=== PATIENT | female | born 1960 | race Caucasian/White ===

== ENCOUNTER 2018-03-09 14:10 | Emergency (ER) | payer OTHER ==
[~2018-03-09] VITALS: Ht 157.5 cm; Wt 57.2 kg
[~2018-03-09 14:10] MED LIST: CELEBREX100 MG; KLONOPIN0.25 MG/TA; NEURONTIN800 MG; PREMARIN2.5 MG; PROTONIX40 M1; RESTORIL15 MG; TORADOL10 MG; WELLBUTRIN100 MG; ZANTAC150 M3
== END 2018-03-09 20:17 | disposition home or self-care (01) ==
LOC: ER 14:10
DX: K59.09 Other constipation (principal); R10.31 Right lower quadrant pain

== ENCOUNTER 2018-03-13 08:22 | Outpatient (CLI) | payer OTHER | END 2018-03-13 11:26 | disposition home or self-care (01) | LOC: TOM 08:22 | DX: R10.9 Unspecified abdominal pain (principal) ==

== ENCOUNTER 2021-02-15 10:21 | Outpatient (CLI) | payer OTHER | END 2021-02-15 10:40 | disposition home or self-care (01) | LOC: TOM 10:21 | DX: E21.3 Hyperparathyroidism, unspecified (principal); R51.9 Headache, unspecified ==

== ENCOUNTER → 2021-02-15 12:03 | Outpatient (CLI) | payer OTHER | END | disposition home or self-care (01) | LOC: LAB 12:03 | PROVIDERS: ATTEND Radiology Diagnostic Radiology | DX: R51.9 Headache, unspecified (principal) ==

== ENCOUNTER 2022-05-14 11:43 | Emergency (ER) | payer OTHER ==
[~2022-05-14] VITALS: Ht 157.5 cm; Wt 60.8 kg
[2022-05-14] MEDS ORDERED: MINIVELLE1 EAC1 TD (12:10)
[2022-05-14] MEDS ORDERED: RELAFEN DS1000 MG PO (12:11)
== END 2022-05-14 22:44 | disposition home or self-care (01) ==
LOC: ER 11:43
DX: R10.2 Pelvic and perineal pain (principal); E78.00 Pure hypercholesterolemia, unspecified

== ENCOUNTER 2022-06-25 21:53 | Emergency (ER) | payer OTHER ==
[~2022-06-25] VITALS: Ht 157.5 cm; Wt 60.3 kg
[~2022-06-25 21:53] MED LIST changes: +MINIVELLE1 EAC1 TD; +RELAFEN DS1000 MG PO
[2022-06-25] MEDS ORDERED: MACRODANTIN100 MG PO (22:07)
[2022-06-25] MEDS ORDERED: CLONAZEPAM0.5 MG PO (22:07)
[2022-06-25] MEDS ORDERED: IPRAT-ALBUT 0.5-3 ML IH (22:27)
[2022-06-25] MEDS ORDERED: BENZONATATE200 M1 PO (22:27)
[2022-06-25] MEDS ORDERED: BUDEO.25 IH (23:03)
== END 2022-06-26 00:01 | disposition home or self-care (01) ==
LOC: ER 21:53
DX: U07.1 COVID-19 (principal)

== ENCOUNTER → 2022-07-11 | Outpatient (CLI) | payer OTHER ==
[~2022-07-11] MED LIST changes: +BENZONATATE200 M1 PO; +BUDEO.25 IH; +CLONAZEPAM0.5 MG PO; +IPRAT-ALBUT 0.5-3 ML IH; +MACRODANTIN100 MG PO
== END | disposition home or self-care (01) ==
LOC: RAD 12:19
PROVIDERS: ATTEND Internal Medicine Pulmonary Disease
DX: J44.1 Chronic obstructive pulmonary disease with (acute) exacerbation (principal); J44.9 Chronic obstructive pulmonary disease, unspecified

== ENCOUNTER 2022-10-29 11:27 | Emergency (ER) | payer OTHER ==
[~2022-10-29] VITALS: Ht 157.5 cm; Wt 59.4 kg
[2022-10-29] MEDS ORDERED: NAPROXEN500 MG PO (15:04)
[2022-10-29] MEDS ORDERED: AMOX1TAB5 PO (15:04)
== END 2022-10-29 16:06 | disposition home or self-care (01) ==
LOC: ER 11:27
DX: H66.90 Otitis media, unspecified, unspecified ear (principal)

== ENCOUNTER 2022-11-27 13:29 | Outpatient (CLI) | payer OTHER ==
[~2022-11-27 13:29] MED LIST changes: +AMOX1TAB5 PO; +NAPROXEN500 MG PO
== END 2022-11-27 13:35 | disposition home or self-care (01) ==
LOC: TOM 13:29
PROVIDERS: ATTEND Internal Medicine Critical Care Medicine
DX: J84.9 Interstitial pulmonary disease, unspecified (principal)

== ENCOUNTER 2023-03-29 15:11 | Emergency (ER) | payer OTHER ==
[~2023-03-29] VITALS: Ht 160 cm; Wt 63.5 kg
[2023-03-29] MEDS ORDERED: PROAIR RESPICL90 MCG IH (18:10)
[2023-03-29] MEDS ORDERED: TUSNEL LIQUID178 ML PO (18:10)
[2023-03-29] MEDS ORDERED: DOLOGEN CAPLET1 EACH PO (18:10)
[2023-03-29] MEDS ORDERED: PAXLOVID 300-11 EACH PO (18:10)
== END 2023-03-29 18:15 | disposition home or self-care (01) ==
LOC: ER 15:11
DX: U07.1 COVID-19 (principal); R53.81 Other malaise

== ENCOUNTER 2023-04-05 14:01 | Outpatient (CLI) | payer OTHER ==
[~2023-04-05 14:01] MED LIST changes: +DOLOGEN CAPLET1 EACH PO; +PAXLOVID 300-11 EACH PO; +PROAIR RESPICL90 MCG IH; +TUSNEL LIQUID178 ML PO
== END 2023-04-05 14:22 | disposition home or self-care (01) ==
LOC: TOM 14:01
PROVIDERS: ATTEND General Practice
DX: G43.909 Migraine, unspecified, not intractable, without status migrainosus (principal); M54.10 Radiculopathy, site unspecified

== ENCOUNTER 2023-12-21 18:57 | Emergency (ER) | payer OTHER ==
[~2023-12-21] VITALS: Ht 157.5 cm; Wt 54.9 kg
[2023-12-21] MEDS ORDERED: BUPROPION HCL100 MG PO (19:07)
[2023-12-21] MEDS ORDERED: ESTRADIOL1 MG PO (19:08)
[2023-12-21] MEDS ORDERED: ATORVASTATIN CA10 MG PO (19:08)
[2023-12-21] MEDS ORDERED: NEOMYCIN/POLYMYXIN B/HYDROCORT 20 DR/ML BOTTLE OT STA (20:20)
== END 2023-12-21 21:08 | disposition home or self-care (01) ==
LOC: ER 18:57
DX: H60.90 Unspecified otitis externa, unspecified ear (principal); Z88.6 Allergy status to analgesic agent; Z88.5 Allergy status to narcotic agent

== ENCOUNTER 2024-04-28 05:15 | Emergency (ER) | payer OTHER ==
[~2024-04-28] VITALS: Ht 157.5 cm; Wt 54.4 kg
[~2024-04-28 05:15] MED LIST changes: +ATORVASTATIN CA10 MG PO; +BUPROPION HCL100 MG PO; +ESTRADIOL1 MG PO
[2024-04-28] MEDS ORDERED: FAMOTIDINE/PF 20 MG/2 ML VIAL IV PUSH STA (05:43)
[2024-04-28] MEDS ORDERED: PROMETHAZINE HCL 50 MG/ML AMPUL IM STA (05:43)
[2024-04-28] MEDS ORDERED: MEPERIDINE HCL/PF 25 MG/ML VIAL IM STA (05:43)
[2024-04-28] MEDS ORDERED: 0.9 % SODIUM CHLORIDE 1,000 ML IV ONE (05:45)
[2024-04-28] MEDS ORDERED: PROMETHAZINE HCL 50 MG/ML AMPUL IM ONE (05:47)
[2024-04-28] MEDS ORDERED: FAMOtidine 200mg/20ml VIAL ONE (05:48)
[2024-04-28 06:45] LABS: HEMATOCRIT 41.9 % (36.0-45.00); HEMOGLOBIN 14.3 g/dL (12.0-15.00); MEAN CORPUSCULAR HEMOGLOBIN 30.4 pg (27.00-32.0); MEAN CORPUSCULAR HGB CONC 34.1 g/dl (32.0-36.0); PLATELET COUNT 219 K/uL (150-450); RED BLOOD COUNT 4.71 M/uL (4.00-6.00)
[2024-04-28 07:02] LABS: INR 0.94; PARTIAL THROMBOPLASTIN TIME 26.8 SECONDS (22.0-34.0); PROTHROMBIN TIME 9.9 SECONDS (9.0-11.5)
[2024-04-28 07:09] LABS: ALBUMIN 3.8 gm/dL (3.4-5.0); BILIRUBIN TOTAL 0.79 mg/dL (0.3-1.2); BILIRUBIN,CONJUGATED 0.4 mg/dL (0.0-0.2); BILIRUBIN,UNCONJUGATED 0.39 mg/dL (0.0-0.6); CALCIUM 9.2 mg/dL (8.5-10.1); CREATININE SERUM 0.8 mg/dL (0.55-1.02); GFR 72.21; GLOBULINA 3.4 G/DL (2.4-3.5); POTASSIUM 3.85 mEq/L (3.5-5.1); TOTAL PROTEIN 7.2 gm/dL (6.4-8.2)
[2024-04-28 07:56] LABS: PH,URINE 6.5 (5.0-8.0); URINE APPEARANCE Clear; URINE BILIRRUBIN Negative (NEGATIVE); URINE BLOOD Negative; URINE COLOR Yellow; URINE GLUCOSE Negative (NEGATIVE); URINE LEUKOCYTE Negative; URINE NITRATE Negative; URINE PROTEIN Negative (NEGATIVE); URINE UROBILINOGEN 0.2 E.U./dl
[2024-04-28 07:57] LABS: URINE EPITHELIAL CELLS 39.5 uL (0.0-38.8); URINE RBC 19.2 uL (0.0-20.8); URINE WBC 6.8 uL (0.0-23.2)
[2024-04-28] MEDS ORDERED: PEPCID AC20 MG PO (10:00)
[2024-04-28] MEDS ORDERED: ONDANSETRON ODT8 MG PO (10:00)
[2024-04-28] MEDS ORDERED: LEVSIN/SL0.125 MG SL (10:00)
[2024-04-28] MEDS ORDERED: METHYLPREDNISOLONE SOD SUCC 125 MG VIAL IV ONE (10:00)
[2024-04-28] MEDS ORDERED: HYOSCYAMINE SULFATE 0.125 MG TAB.SUBL SL ONE (10:00)
[2024-04-28] MEDS ORDERED: HYOSCYAMINE SULFATE 0.125 MG TAB.SUBL ONE (10:05)
[2024-04-28] MEDS ORDERED: METHYLPREDNISOLONE SOD SUCC 125 MG VIAL ONE (10:06)
== END 2024-04-28 10:49 | disposition home or self-care (01) ==
LOC: ER 05:17
PROVIDERS: General Practice
DX: R10.13 Epigastric pain (principal); Z88.6 Allergy status to analgesic agent; Z88.8 Allergy status to other drugs, medicaments and biological substances; R11.10 Vomiting, unspecified; K80.20 Calculus of gallbladder without cholecystitis without obstruction
CPT/HCPCS: 36415; 76700; 93005; 96365; 96366; 99284; J2250; J3490; J7030

== ENCOUNTER → 2024-04-29 | Emergency (ER) | payer OTHER ==
[~2024-04-29] VITALS: Ht 157.5 cm; Wt 56.7 kg
[~2024-04-29] MED LIST changes: +LEVSIN/SL0.125 MG SL; +ONDANSETRON ODT8 MG PO; +PEPCID AC20 MG PO
== END | disposition left against medical advice (07) ==
LOC: ER 11:22
DX: Z53.21 Procedure and treatment not carried out due to patient leaving prior to being seen by health care provider (principal); Z88.5 Allergy status to narcotic agent; Z88.6 Allergy status to analgesic agent

== ENCOUNTER 2024-05-19 06:51 | Day surgery (SDC) | payer OTHER | END 2024-05-19 17:00 | disposition home or self-care (01) | LOC: CIR.AMB 06:51 | PROVIDERS: ATTEND Surgery | DX: K57.30 Diverticulosis of large intestine without perforation or abscess without bleeding (principal); K64.9 Unspecified hemorrhoids; Z88.6 Allergy status to analgesic agent; Z88.1 Allergy status to other antibiotic agents ==

== ENCOUNTER 2024-06-02 10:35 | Inpatient (IN) | payer OTHER ==
[~2024-06-02] VITALS: Ht 162.6 cm; Wt 56.7 kg
--- NOTE | 2024-06-02 11:10 | NUR ---
PACIENTE ALERTA Y ORIENTADA X 3. REFIERE DOLOR EN AREA PELVICA LADO DERECHO DEDSDE EL VANE DE CORY QUE SE IRRADIA EN ESPLADA BAJA. ESTA REFIERE TENER JEMAL EN VESICULA. INDICA PROBLEMAS PARA ORINAR.
[2024-06-02] MEDS ORDERED: ZIAC PO (11:14)
[2024-06-02] MEDS ORDERED: MEPERIDINE HCL/PF 25 MG/ML VIAL IV ONE (11:45)
[2024-06-02] MEDS ORDERED: 0.9 % SODIUM CHLORIDE 1,000 ML IV SCH ×2 (11:45→23:00)
[2024-06-02 12:11] LABS: HEMATOCRIT 40.8 % (36.0-45.00); HEMOGLOBIN 13.8 g/dL (12.0-15.00); MEAN CELL VOLUME 88.8 fL (80.00-100.00); MEAN CORPUSCULAR HGB CONC 33.8 g/dl (32.0-36.0); PLATELET COUNT 234 K/uL (150-450); RED BLOOD COUNT 4.59 M/uL (4.00-6.00); RED CELL DISTRIBUTION WIDTH 12.6 % (11.5-14.5)
--- NOTE | 2024-06-02 12:12 | NUR ---
PTE ALERTA Y ORIENTADA X3. SE EDUCA A PTE SOBTE [place] MEDICO, LA MISMA REFIERE ENTENDER. SE ADMINISTRAN MEDICAMENTOS DAVID ORDEN MEDICA BAJO MEDIDAS ASEPTICAS Y SE ADMINISTRAN MEDICAMENTOS DAVID ORDEN MEIDCA. SE NOTIFICA SONO PENDIENTE Y SE HACE ENTREGA DE ENVASE PARA U.A PENDIENTE
[2024-06-02 12:47] LABS: AMYLASE 50 U/L (25-115); LIPASE 18 U/L (13-75)
[2024-06-02 12:49] LABS: CALCIUM 8.7 mg/dL (8.5-10.1); CREATININE SERUM 0.79 mg/dL (0.55-1.02); GFR 73.27; POTASSIUM 3.6 mEq/L (3.5-5.1)
[2024-06-02 12:56] LABS: INR 1.01; PARTIAL THROMBOPLASTIN TIME 29.3 SECONDS (22.0-34.0)
[2024-06-02 14:15] LABS: PH,URINE 7.5 (5.0-8.0); URINE APPEARANCE Clear; URINE BILIRRUBIN Negative (NEGATIVE); URINE BLOOD Negative; URINE COLOR Yellow; URINE GLUCOSE Negative (NEGATIVE); URINE KETONE Negative (NEGATIVE); URINE LEUKOCYTE Negative; URINE NITRATE Negative; URINE PROTEIN Negative (NEGATIVE); URINE UROBILINOGEN 0.2 E.U./dl
[2024-06-02 14:18] LABS: URINE BACTERIA 52.9 uL (0.0-1933); URINE EPITHELIAL CELLS 4.4 uL (0.0-38.8); URINE RBC 4.1 uL (0.0-20.8)
[2024-06-02] MEDS ORDERED: FAMOTIDINE/PF 20 MG/2 ML VIAL ONE ×2 (15:40→23:26)
[2024-06-02] MEDS ORDERED: FAMOTIDINE/PF 20 MG in 0.9 % SODIUM CHLORIDE 8 ML IV PUSH STA ×2 (16:21→23:23)
[2024-06-02] MEDS ORDERED: ONDANSETRON HCL 2 MG/ML VIAL ONE (16:23)
[2024-06-02] MEDS ORDERED: ONDANSETRON HCL 2 MG/ML VIAL IV ONE (16:30)
[2024-06-02] MEDS ORDERED: MEPERIDINE HCL/PF 25 MG/ML VIAL IM ONE (16:30)
[2024-06-02] MEDS ORDERED: MEPERIDINE HCL/PF 25 MG/ML VIAL IM PRN (23:00)
[2024-06-02] MEDS ORDERED: ACETAMINOPHEN 500 MG GEL..CAP PO PRN (23:00)
[2024-06-02] MEDS ORDERED: ONDANSETRON HCL 4 MG in 0.9 % SODIUM CHLORIDE 50 ML IV PRN (23:00)
[2024-06-02] MEDS ORDERED: ACETAMINOPHEN 500 MG GEL..CAP PO ONE (23:25)
[2024-06-02] MEDS ORDERED: PIPERACILLIN/TAZOBACTAM SODIUM 3.375 GM VIAL IV ONE (23:59)
[2024-06-03] MEDS ORDERED: PIPERACILLIN/TAZOBACTAM SODIUM 3.375 GM in DEXTROSE 5 % IN WATER 100 ML IV SCH
[2024-06-03 02:01] LABS: PH,URINE 7.5 (5.0-8.0); URINE APPEARANCE Clear; URINE BILIRRUBIN Negative (NEGATIVE); URINE BLOOD Negative; URINE COLOR Yellow; URINE GLUCOSE Negative (NEGATIVE); URINE KETONE 15 (NEGATIVE); URINE LEUKOCYTE Negative; URINE NITRATE Negative; URINE PROTEIN Negative (NEGATIVE); URINE UROBILINOGEN 0.2 E.U./dl
[2024-06-03 02:04] LABS: URINE BACTERIA 71.8 uL (0.0-1933); URINE EPITHELIAL CELLS 12.1 uL (0.0-38.8); URINE RBC 5.6 uL (0.0-20.8); URINE WBC 8.3 uL (0.0-23.2)
[2024-06-03 02:27] LABS: URINE CAST 0.15 uL (0.0-1.40)
[2024-06-03 05:55] VITALS: BP 139/63; O2SAT 100
[2024-06-03] MEDS ORDERED: FAMOTIDINE/PF 20 MG in 0.9 % SODIUM CHLORIDE 8 ML IV PUSH SCH (09:00)
[2024-06-03] MEDS ORDERED: GABAPENTIN 300 MG CAPSULE PO SCH (09:00)
[2024-06-03 09:32] VITALS: BP 128/61; O2SAT 99
[2024-06-03 13:11] LABS: ALBUMIN 3.4 gm/dL (3.4-5.0); BILIRUBIN TOTAL 0.42 mg/dL (0.3-1.2); CALCIUM 8.4 mg/dL (8.5-10.1); CREATININE SERUM 0.78 mg/dL (0.55-1.02); GFR 74.35; GLOBULINA 3.1 G/DL (2.4-3.5); POTASSIUM 3.85 mEq/L (3.5-5.1); TOTAL PROTEIN 6.5 gm/dL (6.4-8.2)
[2024-06-03 16:00] VITALS: BP 150/69; O2SAT 100
[2024-06-04] VITALS: BP 158/67; O2SAT 97
[2024-06-04] MEDS ORDERED: METRONIDAZOLE/SODIUM CHLORIDE 200 ML IV NR
[2024-06-04] MEDS ORDERED: CEFTRIAXONE SODIUM 2,000 MG in 0.9 % SODIUM CHLORIDE 50 ML IV NR (06:00)
[2024-06-04] MEDS ORDERED: BUPIVACAINE HCL/MPF 0.5% 30ML VIAL ONE (07:20)
[2024-06-04] MEDS ORDERED: DIPHENHYDRAMINE HCL 50 MG/ML VIAL 1ML ONE (08:12)
[2024-06-04] MEDS ORDERED: SUGAMMADEX SODIUM 200 MG/2 ML VIAL IV ONE (08:45)
[2024-06-04] MEDS ORDERED: BUPIVACAINE HCL 30 ML VIAL IJ ONE (08:45)
[2024-06-04] MEDS ORDERED: LIDOCAINE HCL 1%/EPINEPHRINE 20ML VIAL IJ ONE (08:45)
[2024-06-04] MEDS ORDERED: ONDANSETRON HCL 2 MG/ML VIAL IV PRN (09:30)
[2024-06-04] MEDS ORDERED: RINGERS SOLUTION,LACTATED 1,000 ML IV SCH (09:30)
[2024-06-04] MEDS ORDERED: DEXTROSE 50 % IN WATER 0.5 G/ML DISP.SYRIN IV PRN (09:30)
[2024-06-04] MEDS ORDERED: MORPHINE SULFATE 4 MG/ML CARTRIDGE IV PRN (09:30)
[2024-06-04] MEDS ORDERED: MORPHINE SULFATE 4 MG/ML VIAL IV ONE ×2 (09:55→10:25)
[2024-06-04 10:52] LABS: HEMATOCRIT 38.4 % (36.0-45.00); MEAN CELL VOLUME 88.7 fL (80.00-100.00); MEAN CORPUSCULAR HEMOGLOBIN 29.9 pg (27.00-32.0); MEAN CORPUSCULAR HGB CONC 33.7 g/dl (32.0-36.0); PLATELET COUNT 205 K/uL (150-450); RED BLOOD COUNT 4.34 M/uL (4.00-6.00); RED CELL DISTRIBUTION WIDTH 12.9 % (11.5-14.5)
[2024-06-04 11:16] VITALS: BP 128/61; O2SAT 98
[2024-06-04 11:27] LABS: ALBUMIN 3.2 gm/dL (3.4-5.0); CALCIUM 7.9 mg/dL (8.5-10.1); CREATININE SERUM 0.87 mg/dL (0.55-1.02); GFR 65.55; MAGNESIUM 2.3 mg/dL (1.8-2.4); PHOSPHOROUS 2.9 mg/dL (2.5-4.9); POTASSIUM 3.81 mEq/L (3.5-5.1)
[2024-06-04] MEDS ORDERED: OxyCODONE HCL 5 MG TABLET (ROXICODONE) PO PRN (12:00)
[2024-06-04] MEDS ORDERED: ACETAMINOPHEN 500 MG GEL..CAP PO SCH (12:00)
[2024-06-04] MEDS ORDERED: NEURONTIN300 MG PO (12:08)
[2024-06-04] MEDS ORDERED: PROTONIX40 MG PO (12:08)
[2024-06-04 16:00] VITALS: BP 159/73; O2SAT 97
[2024-06-04] MEDS ORDERED: GABAPENTIN 300 MG CAPSULE PO SCH (17:00)
[2024-06-04] MEDS ORDERED: FAMOTIDINE/PF 20 MG/2 ML VIAL IV PUSH SCH (21:00)
[2024-06-05] VITALS: BP 133/61; O2SAT 98
[2024-06-05 08:39] VITALS: BP 155/70; O2SAT 96
[2024-06-05] MEDS ORDERED: CHILDREN DIMET118 ML PO (18:04)
[2024-06-05] MEDS ORDERED: BENADRYL25 MG PO (18:06)
[2024-06-06] MEDS ORDERED: ENOXAPARIN SODIUM 40 MG/0.4 ML SYRINGE SUBCUTANEO SCH (09:00)
== END 2024-06-05 11:54 | disposition home or self-care (01) | DRG 419 ==
LOC: ER 10:37 → SURG 22:58
PROVIDERS: Emergency Medicine; General Practice; Surgery; ADMIT Internal Medicine; ATTEND Internal Medicine
PROC: BW21YZZ Computerized Tomography (CT Scan) of Abdomen and Pelvis using Other Contrast (ICD-10-PCS; 2024-06-02)
PROC: BW40ZZZ Ultrasonography of Abdomen (ICD-10-PCS; 2024-06-02)
PROC: BF13YZZ Fluoroscopy of Gallbladder and Bile Ducts using Other Contrast (ICD-10-PCS; 2024-06-04)
PROC: 0FT44ZZ Resection of Gallbladder, Percutaneous Endoscopic Approach (ICD-10-PCS; principal; 2024-06-04 11:15)
DX: K80.20 Calculus of gallbladder without cholecystitis without obstruction (principal); E83.59 Other disorders of calcium metabolism

== ENCOUNTER 2024-06-05 14:20 | Emergency (ER) | payer OTHER ==
[~2024-06-05] VITALS: Ht 157.5 cm; Wt 56.7 kg
[~2024-06-05 14:20] MED LIST changes: +NEURONTIN300 MG PO; +PROTONIX40 MG PO; +ZIAC PO
[2024-06-05] MEDS ORDERED: DIPHENHYDRAMINE HCL 12.5 MG/5 ML BLIST.PACK PO STA (15:41)
[2024-06-05] MEDS ORDERED: DIPHENHYDRAMINE HCL 12.5 MG/5 ML BLIST.PACK PO ONE (16:00)
[2024-06-05] MEDS ORDERED: DEXAMETHASONE SODIUM PHOSPHATE 4 MG/ML VIAL IM STA (16:06)
[2024-06-05] MEDS ORDERED: DEXAMETHASONE SODIUM PHOSPHATE 4 MG/ML VIAL ONE (16:10)
[2024-06-05 16:29] LABS: HEMATOCRIT 40.4 % (36.0-45.00); HEMOGLOBIN 13.7 g/dL (12.0-15.00); MEAN CELL VOLUME 89.1 fL (80.00-100.00); MEAN CORPUSCULAR HEMOGLOBIN 30.3 pg (27.00-32.0); PLATELET COUNT 218 K/uL (150-450); RED BLOOD COUNT 4.53 M/uL (4.00-6.00); RED CELL DISTRIBUTION WIDTH 13.1 % (11.5-14.5)
[2024-06-05] MEDS ORDERED: CHILDREN DIMET118 ML PO (18:04)
[2024-06-05] MEDS ORDERED: BENADRYL25 MG PO (18:06)
== END 2024-06-05 18:39 | disposition home or self-care (01) ==
LOC: ER 14:22
DX: R21 Rash and other nonspecific skin eruption (principal); T78.40XA Allergy, unspecified, initial encounter; Z88.5 Allergy status to narcotic agent; Z88.6 Allergy status to analgesic agent
CPT/HCPCS: 36415; 96372; 99282; J1100

== ENCOUNTER 2024-11-04 20:08 | Emergency (ER) | payer OTHER ==
[~2024-11-04] VITALS: Ht 157.5 cm; Wt 58.1 kg
[~2024-11-04 20:08] MED LIST changes: +BENADRYL25 MG PO; +CHILDREN DIMET118 ML PO
[2024-11-04] MEDS ORDERED: PROTONIX40 MG (20:14)
[2024-11-04] MEDS ORDERED: AMITRIPTYLINE H25 MG (20:14)
[2024-11-04] MEDS ORDERED: YUVAFEM10 MCG (20:15)
[2024-11-04] MEDS ORDERED: 0.9 % SODIUM CHLORIDE 1,000 ML IV SCH (20:48)
[2024-11-04] MEDS ORDERED: FAMOTIDINE/PF 20 MG/2 ML VIAL ONE (21:29)
[2024-11-04] MEDS ORDERED: FAMOTIDINE/PF 20 MG/2 ML VIAL IV PUSH ONE (21:30)
[2024-11-04 21:43] LABS: HEMATOCRIT 45.7 % (36.0-45.00); HEMOGLOBIN 15.4 g/dL (12.0-15.00); MEAN CELL VOLUME 88.3 fL (80.00-100.00); MEAN CORPUSCULAR HEMOGLOBIN 29.8 pg (27.00-32.0); MEAN CORPUSCULAR HGB CONC 33.7 g/dl (32.0-36.0); PLATELET COUNT 194 K/uL (150-450); RED BLOOD COUNT 5.18 M/uL (4.00-6.00); RED CELL DISTRIBUTION WIDTH 13.5 % (11.5-14.5)
[2024-11-04 22:02] LABS: CALCIUM 9.3 mg/dL (8.5-10.1); CREATININE SERUM 0.88 mg/dL (0.55-1.02); GFR 64.49; POTASSIUM 3.85 mEq/L (3.5-5.1)
[2024-11-04] MEDS ORDERED: LEVALBUTEROL HCL 0.63 MG/3 ML SOLUTION IH SCH (23:45)
[2024-11-05 00:16] LABS: PH,URINE 6.5 (5.0-8.0); URINE APPEARANCE Clear; URINE BILIRRUBIN Negative (NEGATIVE); URINE BLOOD Negative; URINE COLOR Yellow; URINE GLUCOSE Negative (NEGATIVE); URINE KETONE Negative (NEGATIVE); URINE LEUKOCYTE Moderate; URINE NITRATE Negative; URINE PROTEIN Negative (NEGATIVE); URINE UROBILINOGEN 0.2 E.U./dl
[2024-11-05 00:20] LABS: URINE BACTERIA 554.4 uL (0.0-1933); URINE EPITHELIAL CELLS 15.6 uL (0.0-38.8); URINE RBC 2.7 uL (0.0-20.8); URINE WBC 49.6 uL (0.0-23.2)
[2024-11-05 00:28] LABS: URINE CAST 0.14 uL (0.0-1.40)
[2024-11-05] MEDS ORDERED: LEVALBUTEROL HCL 0.63 MG/3 ML SOLUTION IH ONE (01:54)
[2024-11-05] MEDS ORDERED: PEPCID40 MG PO (04:17)
[2024-11-05] MEDS ORDERED: ZYNCOF 20-400120 ML PO (04:17)
[2024-11-05] MEDS ORDERED: INTESTINEX680 M2 PO (04:17)
[2024-11-05] MEDS ORDERED: DOLOGESIC-DF 51 EACH PO (04:17)
[2024-11-05] MEDS ORDERED: BUDESONIDE0.5 MG/2 M IH (04:17)
[2024-11-05] MEDS ORDERED: PHENAGIL TABLE1 EACH PO (04:17)
[2024-11-05] MEDS ORDERED: LEVALBUTER0.63 MG/3 IH (04:17)
== END 2024-11-05 04:22 ==
LOC: ER 20:08
PROVIDERS: Emergency Medicine
DX: K52.89 Other specified noninfective gastroenteritis and colitis (principal); Z88.6 Allergy status to analgesic agent; Z88.8 Allergy status to other drugs, medicaments and biological substances; F32.89 Other specified depressive episodes; J10.1 Influenza due to other identified influenza virus with other respiratory manifestations; Z20.822 Contact with and (suspected) exposure to COVID-19
CPT/HCPCS: 36415; 71045; 94640; 96365; 96366; 99284; J3490; J7030

== ENCOUNTER 2025-02-09 14:09 | Outpatient (CLI) | payer OTHER ==
[~2025-02-09 14:09] MED LIST changes: +AMITRIPTYLINE H25 MG; +BUDESONIDE0.5 MG/2 M IH; +DOLOGESIC-DF 51 EACH PO; +INTESTINEX680 M2 PO; +LEVALBUTER0.63 MG/3 IH; +PEPCID40 MG PO; +PHENAGIL TABLE1 EACH PO; +PROTONIX40 MG; +YUVAFEM10 MCG; +ZYNCOF 20-400120 ML PO
== END 2025-02-09 14:14 | disposition home or self-care (01) ==
LOC: RAD 14:09
DX: R05.9 Cough, unspecified (principal)

== ENCOUNTER 2025-03-05 09:57 | Outpatient (CLI) | payer OTHER | END 2025-03-05 10:06 | disposition home or self-care (01) | LOC: SONOGRAMA 09:57 | DX: S63.260A Dislocation of metacarpophalangeal joint of right index finger, initial encounter (principal) ==

== ENCOUNTER 2025-04-30 13:06 | Emergency (ER) | payer OTHER ==
[~2025-04-30] VITALS: Ht 157.5 cm; Wt 54.4 kg
[2025-04-30] MEDS ORDERED: DIPHTH,PERTUSS(ACELL),TET VAC 0.5 ML VIAL IM ONE (13:45)
[2025-04-30] MEDS ORDERED: DIPHTH,PERTUSS(ACELL),TET VAC 0.5 ML SYRINGE IM ONE (13:46)
[2025-04-30] MEDS ORDERED: CEFTRIAXONE SODIUM 1,000 MG VIAL ONE (13:56)
[2025-04-30] MEDS ORDERED: CEFTRIAXONE SODIUM 1,000 MG VIAL IM ONE (14:00)
[2025-04-30 14:02] LABS: BASO % 0.6 % (0.1-1.2); EOS # 0.20 (0.04-0.54); EOS % 2.0 % (0.7-7.0); LYMPH # 3.16 (1.18-3.74); LYMPH % 31.3 % (19.3-53.1); MEAN PLATELET VOLUME 10.50 fl (9.4-12.4); MONO # 0.74 (0.24-0.82); MONO % 7.3 % (4.7-12.5); NEUT # 5.91 (1.56-6.13); NEUT % 58.5 % (34.0-71.1); RED CELL DISTRIBUTION WIDTH 12.7 % (11.6-14.4)
[2025-04-30 14:34] LABS: URINE APPEARANCE Clear; URINE BILIRRUBIN Negative (NEGATIVE); URINE BLOOD Negative; URINE COLOR Yellow; URINE GLUCOSE Negative (NEGATIVE); URINE KETONE Negative (NEGATIVE); URINE LEUKOCYTE Moderate; URINE NITRATE Negative; URINE PROTEIN Negative (NEGATIVE); URINE UROBILINOGEN 0.2 E.U./dl
[2025-04-30 14:38] LABS: URINE BACTERIA 400.6 uL (0.0-1933); URINE EPITHELIAL CELLS 3.3 uL (0.0-38.8); URINE RBC 2.3 uL (0.0-20.8); URINE WBC 125.3 uL (0.0-23.2)
[2025-04-30 14:39] LABS: ALT/SGPT 22.0 U/L (12-78); AST/SGOT 18.0 U/L (15-37); BILIRUBIN TOTAL 0.34 mg/dL (0.3-1.2); BUN CREA RATIO 12.0 (7.0-25.0); CREATININE SERUM 0.89 mg/dL (0.55-1.02); GFR 63.65; GLOBULINA 3.7 G/DL (2.4-3.5); GLUCOSE FASTING 130.0 mg/dL (65-100); OSMOLALITY SERUM 282.0 MOSM/KG (275-295)
[2025-04-30 14:46] LABS: URINE CAST 0.00 uL (0.0-1.40)
[2025-04-30] MEDS ORDERED: MACROBID 100 M100 MG PO (16:40)
[2025-04-30] MEDS ORDERED: AMOX-CLAV 875-1 EACH PO (16:40)
== END 2025-04-30 17:28 | disposition home or self-care (01) ==
LOC: ER 13:12
PROVIDERS: Preventive Medicine Public Health & General Preventive Medicine
DX: S61.451A Open bite of right hand, initial encounter (principal); W55.01XA Bitten by cat, initial encounter; Y93.89 Activity, other specified; Y92.488 Other paved roadways as the place of occurrence of the external cause; Y99.8 Other external cause status; N39.0 Urinary tract infection, site not specified; Z88.5 Allergy status to narcotic agent; Z88.6 Allergy status to analgesic agent
CPT/HCPCS: 36415; 90471; 90714; 96372; 99282; J0696; J1670; J3490

== ENCOUNTER 2025-05-22 09:07 | Outpatient (CLI) | payer OTHER ==
[~2025-05-22 09:07] MED LIST changes: +AMOX-CLAV 875-1 EACH PO; +MACROBID 100 M100 MG PO
== END 2025-05-22 09:16 | disposition home or self-care (01) ==
LOC: SONOGRAMA 09:07
PROVIDERS: ATTEND Internal Medicine Infectious Disease
DX: N18.1 Chronic kidney disease, stage 1 (principal); R10.32 Left lower quadrant pain; N20.0 Calculus of kidney

== ENCOUNTER 2025-05-27 13:11 | Outpatient (CLI) | payer OTHER | END 2025-05-27 13:13 | disposition home or self-care (01) | LOC: SONOGRAMA 13:11 | PROVIDERS: ATTEND Internal Medicine Infectious Disease | DX: N18.1 Chronic kidney disease, stage 1 (principal); R10.32 Left lower quadrant pain; N20.0 Calculus of kidney ==

== ENCOUNTER 2025-06-10 18:13 | Emergency (ER) | payer OTHER ==
[~2025-06-10] VITALS: Ht 157.5 cm; Wt 54.4 kg
[2025-06-10] MEDS ORDERED: AMITRIPTYLINE H50 MG PO (18:19)
[2025-06-10] MEDS ORDERED: BISOPROLOL-HCT1 EACH PO (18:19)
[2025-06-10 18:20] VITALS: O2SAT 97
[2025-06-10] MEDS ORDERED: ENALAPRILAT DIHYDRATE 2.5 MG/2 ML VIAL IV STA (18:30)
[2025-06-10] MEDS ORDERED: ENALAPRILAT DIHYDRATE 1.25 MG/ML VIAL IV ONE (18:35)
[2025-06-10 18:54] LABS: BASO % 0.2 % (0.1-1.2); EOS # 0.02 (0.04-0.54); EOS % 0.2 % (0.7-7.0); LYMPH # 3.44 (1.18-3.74); LYMPH % 30.9 % (19.3-53.1); MEAN PLATELET VOLUME 9.90 fl (9.4-12.4); MONO # 0.94 (0.24-0.82); MONO % 8.5 % (4.7-12.5); NEUT # 6.61 (1.56-6.13); NEUT % 59.4 % (34.0-71.1); RED CELL DISTRIBUTION WIDTH 12.2 % (11.6-14.4)
[2025-06-10 19:22] LABS: INR 0.96
[2025-06-10 19:36] LABS: ALT/SGPT 19.0 U/L (12-78); AST/SGOT 15.0 U/L (15-37); BILIRUBIN TOTAL 0.23 mg/dL (0.3-1.2); BUN CREA RATIO 17.0 (7.0-25.0); CREATININE SERUM 0.96 mg/dL (0.55-1.02); GFR 58.33; GLOBULINA 3.9 G/DL (2.4-3.5); GLUCOSE FASTING 138.0 mg/dL (65-100); OSMOLALITY SERUM 279.0 MOSM/KG (275-295)
[2025-06-10 19:43] VITALS: BP 120/80
== END 2025-06-10 20:25 | disposition home or self-care (01) ==
LOC: ER 18:13
PROVIDERS: General Practice
DX: I10 Essential (primary) hypertension (principal); R51.9 Headache, unspecified; Z88.6 Allergy status to analgesic agent
CPT/HCPCS: 36415; 96365; 99282; J3490